=== PATIENT | male | born 2005 | race Caucasian/White ===

== ENCOUNTER 2023-06-03 09:44 | Emergency (ER) | payer BC, OTHER ==
[~2023-06-03] VITALS: Ht 190 cm; Wt 85.0 kg
[2023-06-03 09:56] VITALS: BP 142/97
--- NOTE | 2023-06-03 10:05 | ED General ---
General Chief Complaint: Cough/Cold/Flu Symptoms Stated Complaint: HEMATEMESIS Source of Information: Patient History of Present Illness Date Seen by Provider: Jun 03, 2023 Time Seen by Provider: 09:50 Initial Comments 17-year-old male presenting with complaints of vomiting this morning that he saw bright red blood at the end of his vomiting. He states he was vomiting very forcefully. He has been having chills since Friday. He does have ill contacts with other teammates from the [employer]. He denied having a cough or shortness of breath. He has had some loose stools. Denies any pain or burning with urination. He is not currently nauseated and states he feels a little better since he threw up. He had tried eating some eggs and a protein shake this morning. But had quickly come back up and when he woke up was finishing vomiting is when he had thrown up some bright red blood. He denies seeing any coffee-ground emesis or having any nausea or epigastric pain currently. Associated Systoms: No Chest Pain, No Cough, No Diaphoresis; Fever/Chills; No Headaches, No Loss of Appetite, No Malaise; Nausea/Vomiting; No Rash, No Seizure, No Shortness of Air, No Syncope, No Weakness Allergies and Home Medications Allergies Coded Allergies: Penicillins (Verified Allergy, Unknown, 06/03/23) Patient Home Medication List Home Medication List Reviewed: Yes Ondansetron (Ondansetron Odt) 4 Mg Tab.rapdis, 4 MG PO Q6H PRN for NAUSEA/VOMITING Prescribed by: EVERETT LOPEZ on 06/03/23 1036 Review of Systems Review of Systems Constitutional: chills; No fever; malaise EENTM: no symptoms reported Respiratory: no symptoms reported Cardiovascular: no symptoms reported Gastrointestinal: see HPI Genitourinary: no symptoms reported Musculoskeletal: no symptoms reported Skin: no symptoms reported Psychiatric/Neurological: No Symptoms Reported Past Wgxwkap-Jjkwte-Kfsivw Hx Patient Social History Tobacco Use?: No Use of E-Cig and/or Vaping dev: No Substance use?: No Alcohol Use?: No Physical Exam Vital Signs Vital Signs - First Documented 06/03/23 09:56 Temp 36.6 Pulse 86 Resp 16 B/P (MAP) 142/97 (112) Pulse Ox 97 O2 Delivery Room Air Capillary Refill : Height, Weight, BMI Height: '" Weight: lbs. oz. kg; BMI Method: General Appearance: No Apparent Distress, WD/WN HEENT: PERRL/EOMI, Pharynx Normal Neck: Full Range of Motion, Normal Inspection, Non Tender, Supple Respiratory: Chest Non Tender, Lungs Clear, Normal Breath Sounds, No Accessory Muscle Use, No Respiratory Distress Cardiovascular: Regular Rate, Rhythm, Normal Peripheral Pulses Gastrointestinal: Normal Bowel Sounds, No Pulsatile Mass, Non Tender, Soft; No Distended, No Guarding, No Rebound, No Tenderness Rectal: Deferred Extremity: Normal Capillary Refill, Normal Inspection, No Pedal Edema Neurologic/Psychiatric: Alert, Oriented x3, digital performance analyst II-XII Norm as Tested Skin: Normal Color, Warm/Dry Progress/Results/Core Measures Suspected Sepsis SIRS Temperature: Pulse: Respiratory Rate: Blood Pressure / Mean: Results/Orders Lab Results Laboratory Tests Test 06/03/23 10:00 Range/Units Influenza Type A (RT-PCR) Not Detected Not Detecte Influenza Type B (RT-PCR) Not Detected Not Detecte SARS-CoV-2 RNA (RT-PCR) Not Detected Not Detecte My Orders Orders - EVERETT LOPEZ MD Covid 19 Inhouse Test (06/03/23 09:59) Influenza A And B By Pcr (06/03/23 09:59) Vital Signs/I&O 06/03/23 09:56 Temp 36.6 Pulse 86 Resp 16 B/P (MAP) 142/97 (112) Pulse Ox 97 O2 Delivery Room Air Capillary Refill : Progress Note #1: Progress Note Differential diagnosis includes COVID, influenza, stomach flu, Bessy-Chandra tear, gastroenteritis. Currently patient's vital signs are stable with heart rate in the 70s and sinus rhythm. Initial blood pressure was 142/78. His temperature was afebrile. He had 100% O2 saturation on room air. He appeared in no distress. I did discuss with him options of starting an IV and obtain labs to look at his blood count as well as electrolytes, kidney function, liver function. Could also perform a CT scan to look for pathology to contribute to throwing up blood. Obtain a nasal swab to check for flu and COVID. Patient opted to just have the nasal swab done to check for flu and COVID. He felt like he was not sick enough to need the other test done. He was reassured when I advised him that throwing up very forcefully could cause him to have a little blood in his emesis. It was reassuring that he was not having continued nausea or epigastric pain. Will order a swab for COVID and influenza and recheck on the patient when that is back. Progress Note #2: Progress Note Swab for COVID and flu came back negative. Patient was feeling better as he has been resting in the room. Will prescribe Zofran ODT so that he has something to help keep his stomach settled. We will send that to the local [facility] in he was planning on still trying to drive back home to [place] today. Advised if he was having worsening symptoms or something else developed he could always be seen again otherwise and likely has a different virus than what we have to test for here and he should follow good handwashing and if he starts to cough wear mask around others. Departure Impression Primary Impression: Hematemesis of fresh blood Additional Impression: Chills without fever Disposition: HOME, SELF-CARE Condition: Stable Departure-Patient Inst. Decision time for Depature: 10:35 Referrals: NO,LOCAL PHYSICIAN (PCP/Family) Primary Care Physician Patient Instructions: Gastrointestinal Bleeding (DC) Add. Discharge Instructions: Try to stay well-hydrated and drink plenty of fluids. Use the dissolving nausea tablets to help keep your stomach settled. At this point it seems that the blood you saw with vomiting was related to throwing up forcefully. There could be irritation to your stomach or esophageal lining. Since you are not continuing to have vomiting of blood this seems to have been self-limiting. If you have recurrent symptoms or worsening symptoms you should be reevaluated. You likely have a virus that is causing your symptoms. The test for COVID and influenza were both negative. All discharge instructions reviewed with patient and/or family. Voiced understanding. Scripts Ondansetron (Ondansetron Odt) 4 Mg Tab.rapdis 4 MG PO Q6H PRN for NAUSEA/VOMITING for 3 Days, #12 TAB 0 Refills Prov: EVERETT LOPEZ MD 06/03/23 EVERETT LOPEZ MD Jun 03, 2023 10:05
[2023-06-03] MEDS ORDERED: ONDA4TAB11 PO (10:36)
== END 2023-06-03 10:50 | disposition home or self-care (01) ==
LOC: ER FS 09:47
DX: K92.0 Hematemesis (principal); R68.83 Chills (without fever)
CPT/HCPCS: 87636; 99283